=== PATIENT | female | born 1960 | race Caucasian/White ===

== ENCOUNTER 2019-08-09 09:30 | Inpatient (IN) ==
[2019-08-09] MEDS ORDERED: INSULIN REGULAR 100 UNIT/ML IV ONE ×2 (09:53→12:02)
[2019-08-09] MEDS ORDERED: LEVOFLOXACIN INJ 750 MG in PREMIX 1 EACH IV STA (09:53)
[2019-08-09] MEDS ORDERED: SODIUM CHLORIDE 0.9% 2,000 ML IV STA (09:53)
[2019-08-09 10:13] LABS: INR 1.1; PT Patient Result 12.3 SECS (9.6-12.2); Partial Thromboplastin Time 22.9 SECS (20.8-36.0)
[2019-08-09 10:27] LABS: Basophils # 0.1 10*3/uL (0.0-0.2); Basophils % 0.5 % (0.0-0.8); Eosinophils # 0.1 10*3/uL (0.0-0.87); Eosinophils % 0.3 % (0.00-10.9); Hematocrit 46.1 VOL% (35.7-47.0); Hemoglobin 13.1 GM/DL (12.0-16.0); Immature Granulocytes Absolute 0.34 #; Lymphocytes # 1.7 10*3/uL (1.4-4.0); Mean Corpuscular HGB Conc 28.4 GM/DL (32-36); Mean Corpuscular Volume 114.1 FL (87-102); Mean Platelet Volume 12.2 FL (9.6-12.0); Monocytes % 6.7 % (1.7-12.7); Neutrophils % 80.5 % (38.7-73.9); Platelet Count 396 T/CUMM (130-400); Red Blood Count 4.04 MC/CUMM (3.8-5.5); Red Cell Distribution Width 15.4 % (9.3-17.3)
[2019-08-09 10:29] LABS: Alanine Aminotransferase 28 U/L (13-56); Albumin 3.1 G/DL (3.4-5.0); Alkaline Phosphatase 228 U/L (45-117); Aspartate Amino Transferase 21 U/L (0-37); Blood Urea Nitrogen 40 MG/DL (7-18); Calcium 11.3 MG/DL (8.5-10.1); Estimated Glom Filtration Rate 31 ML/MIN; Osmolality,Calculated 331.7 MOS/KG (273-304); Troponin I < 0.015 NG/ML (0.00-0.045)
[2019-08-09 10:34] LABS: Glucose 941 MG/DL (74-106)
[2019-08-09 10:36] LABS: Platelet Estimate Adequate
[2019-08-09 11:06] LABS: Apearance,Urine CLEAR (Clear); Bacteria,Urine Occasional /HPF (Few); Bilirubin,Urine Negative (Negative); Blood, Urine Negative (Negative); Glucose,Urine (UA) >=500 mg/dL (Negative); Hyaline Casts,Urine 7 /LPF (0-3); Ketones,Urine 20 mg/dL (Negative); Mucus,Urine Occasional /LPF (Occasional); Nitrite,Urine Negative (Negative); Protein,Urine Negative; RBC,Urine 6 /HPF (0-4); Squamous Epithelial Cell,Urine Occasional /HPF (0-10); Urine Color Yellow (Yellow); Urine Specific Gravity 1.021 (1.001-1.035); Urine Urobilinogen < 2.0 EU/DL (0.2-1.0); WBC,Urine 3 /HPF (0-6)
[2019-08-09 11:10] LABS: Barbiturates Screen,Urine Negative (Negative); Benzodiazepines Screen,Urine Negative (Negative); Cannabinoid Screen,Urine Negative (Negative); Opiate Screen,Urine Negative (Negative); Phencyclidine Screen,Urine Negative (Negative)
[2019-08-09] MEDS ORDERED: DEXTROSE 10% 250 ML BAG IV PRN (13:16)
[2019-08-09] MEDS ORDERED: INSULIN REGULAR DRIP 100 ML IV SCH (13:16)
[2019-08-09] MEDS ORDERED: ONDANSETRON 4 MG/2 ML VIAL IV PRN (13:16)
[2019-08-09] MEDS ORDERED: SODIUM CHLORIDE 0.9% 1,000 ML IV ONE (13:16)
[2019-08-09] MEDS: PANTOPRAZOLE 40 MG TABLET PO SCH (14:14)
[2019-08-09 15:15] LABS: ABG Base Excess -2.4 MMOL/L (-2.5-2.5); ABG HCO3 22.3 MMOL/L (20-26); ABG Oxygen Saturation 94.7 % (95-100); ABG PCO2 33.6 MM HG (35-48); ABG PH 7.415 (7.35-7.45); ABG PO2 68.3 MM HG (80-95); ABG TCO2 19.6 MMOL/L (23-27); Pt O2 Delivery Device Room Air
[2019-08-09] MEDS: LACTATED RINGERS 1,000 ML IV SCH ×2 (15:27→22:03)
[2019-08-09 15:59] LABS: Calcium 8.9 MG/DL (8.5-10.1)
[2019-08-09 16:59] LABS: Apearance,Urine CLEAR (Clear); Bilirubin,Urine Negative (Negative); Blood, Urine Negative (Negative); Glucose,Urine (UA) >=500 mg/dL (Negative); Ketones,Urine 5 mg/dL (Negative); Nitrite,Urine Negative (Negative); Protein,Urine Negative; RBC,Urine 1 /HPF (0-4); Urine Color Yellow (Yellow); Urine Specific Gravity 1.013 (1.001-1.035); Urine Urobilinogen < 2.0 EU/DL (0.2-1.0); WBC,Urine 1 /HPF (0-6)
[2019-08-09 17:28] LABS: ABG Base Excess -0.1 MMOL/L (-2.5-2.5); ABG HCO3 24.3 MMOL/L (20-26); ABG Oxygen Saturation 96.2 % (95-100); ABG PCO2 34.3 MM HG (35-48); ABG PH 7.445 (7.35-7.45); ABG PO2 74.4 MM HG (80-95); ABG TCO2 21.4 MMOL/L (23-27); Pt O2 Delivery Device Room Air
[2019-08-09 20:22] LABS: Calcium 9.1 MG/DL (8.5-10.1); Osmolality,Calculated 306.4 MOS/KG (273-304)
[2019-08-09] MEDS ORDERED: GLUCAGON 1 MG VIAL IM PRN (20:59)
[2019-08-09] MEDS ORDERED: DEXTROSE 50% 25 GM/50 ML VIAL IV PRN (20:59)
[2019-08-09] MEDS ORDERED: ENOXAPARIN 30 MG/0.3 ML SYRINGE SUBCUT SCH (21:00)
[2019-08-09] MEDS: DEXTROSE 10% 250 ML BAG IV PRN (23:25)
[2019-08-10] MEDS: INSULIN REGULAR 100 UNIT/ML SUBCUT SCH ×4 (00:47→18:01)
[2019-08-10] MEDS: DEXTROSE 10% 250 ML BAG IV PRN (03:50)
[2019-08-10] MEDS: DEXTROSE 5% LACTATED RINGERS 1,000 ML IV SCH ×3 (04:10→23:50)
[2019-08-10 06:07] LABS: Basophils # 0.1 10*3/uL (0.0-0.2); Basophils % 0.6 % (0.0-0.8); Eosinophils # 0.1 10*3/uL (0.0-0.87); Eosinophils % 0.7 % (0.00-10.9); Hematocrit 30.2 VOL% (35.7-47.0); Immature Granulocytes % 0.6 %; Immature Granulocytes Absolute 0.08 #; Mean Corpuscular HGB Conc 31.5 GM/DL (32-36); Mean Corpuscular Volume 103.4 FL (87-102); Mean Platelet Volume 11.2 FL (9.6-12.0); Monocytes % 9.4 % (1.7-12.7); Neutrophils % 72.7 % (38.7-73.9); Red Cell Distribution Width 15.4 % (9.3-17.3); White Blood Count 12.4 T/CUMM (4-12)
[2019-08-10 06:08] LABS: Calcium 8.5 MG/DL (8.5-10.1); Osmolality,Calculated 291.8 MOS/KG (273-304)
[2019-08-10 06:10] LABS: Hemoglobin 9.5 GM/DL (12.0-16.0); Platelet Count 237 T/CUMM (130-400); Red Blood Count 2.92 MC/CUMM (3.8-5.5)
[2019-08-10 07:37] LABS: Apearance,Urine CLEAR (Clear); Bacteria,Urine Occasional /HPF (Few); Bilirubin,Urine Negative (Negative); Blood, Urine Negative (Negative); Glucose,Urine (UA) Negative (Negative); Ketones,Urine Negative (Negative); Mucus,Urine Few /LPF (Occasional); Nitrite,Urine Negative (Negative); Protein,Urine Negative; RBC,Urine 1 /HPF (0-4); Squamous Epithelial Cell,Urine Occasional /HPF (0-10); Urine Color Yellow (Yellow); Urine Urobilinogen < 2.0 EU/DL (0.2-1.0); WBC,Urine 4 /HPF (0-6)
[2019-08-10] MEDS ORDERED: MAGNESIUM SULF RIDER 2 GM in PREMIX 1 EACH IV ONE (07:41)
[2019-08-10] MEDS: POTASSIUM CHLORIDE 20 MEQ/15 ML UDCUP PEG SCH ×4 (08:36→21:32)
[2019-08-10] MEDS: PANTOPRAZOLE 40 MG TABLET PO SCH (08:36)
[2019-08-10] MEDS ORDERED: HYDROCORTISONE 100 MG VIAL IV SCH ×2 (12:00→21:00)
[2019-08-10] MEDS: ENOXAPARIN 40 MG/0.4 ML SYRINGE SUBCUT SCH (21:31)
[2019-08-10] MEDS: AMIODARONE 200 MG TABLET PEG SCH (21:31)
[2019-08-11] MEDS: INSULIN REGULAR 100 UNIT/ML SUBCUT SCH ×5 (00:55→20:34)
[2019-08-11 05:37] LABS: Basophils % 0.5 % (0.0-0.8); Eosinophils % 0.1 % (0.00-10.9); Hematocrit 29.7 VOL% (35.7-47.0); Hemoglobin 9.3 GM/DL (12.0-16.0); Immature Granulocytes % 0.9 %; Immature Granulocytes Absolute 0.07 #; Lymphocytes # 1.6 10*3/uL (1.4-4.0); Lymphocytes % 20.5 % (21.3-54.2); Mean Corpuscular HGB Conc 31.3 GM/DL (32-36); Mean Corpuscular Volume 103.5 FL (87-102); Mean Platelet Volume 11.8 FL (9.6-12.0); Monocytes % 9.9 % (1.7-12.7); Neutrophils % 68.1 % (38.7-73.9); Platelet Count 188 T/CUMM (130-400); Red Blood Count 2.87 MC/CUMM (3.8-5.5); Red Cell Distribution Width 15.2 % (9.3-17.3)
[2019-08-11 06:32] LABS: Calcium 8.3 MG/DL (8.5-10.1); Osmolality,Calculated 296.5 MOS/KG (273-304)
[2019-08-11] MEDS: INSULIN GLARGINE 100 UNIT/ML SUBCUT SCH ×2 (08:15→20:35)
[2019-08-11] MEDS: AMIODARONE 200 MG TABLET PEG SCH ×2 (08:15→20:53)
[2019-08-11] MEDS: PANTOPRAZOLE 40 MG TABLET PO SCH (08:16)
[2019-08-11] MEDS ORDERED: INSULIN REGULAR 100 UNIT/ML SUBCUT SCH (10:00)
[2019-08-11] MEDS: SODIUM CHLORIDE 0.9% 1,000 ML IV SCH ×3 (11:10→20:53)
[2019-08-11] MEDS ORDERED: DEXTROSE 10% 500 ML BAG IV ONE (17:00)
[2019-08-11] MEDS: DEXTROSE 10% 250 ML BAG IV PRN (20:27)
[2019-08-11] MEDS: ENOXAPARIN 40 MG/0.4 ML SYRINGE SUBCUT SCH (20:52)
[2019-08-12] MEDS: INSULIN REGULAR 100 UNIT/ML SUBCUT SCH ×6 (00:01→20:59)
[2019-08-12] MEDS: DEXTROSE 5% NACL 0.9% 1,000 ML IV SCH ×4 (02:42→18:03)
[2019-08-12] MEDS: SODIUM CHLORIDE 0.9% 1,000 ML IV SCH (02:47)
[2019-08-12 06:17] LABS: Osmolality,Calculated 282.3 MOS/KG (273-304)
[2019-08-12] MEDS: POTASSIUM CHLORIDE 20 MEQ/15 ML UDCUP PER TUBE PRN ×4 (08:13→15:34)
[2019-08-12] MEDS: INSULIN GLARGINE 100 UNIT/ML SUBCUT SCH ×2 (08:13→21:30)
[2019-08-12] MEDS: AMIODARONE 200 MG TABLET PEG SCH ×2 (08:14→21:29)
[2019-08-12] MEDS: PANTOPRAZOLE 40 MG TABLET PO SCH (08:21)
[2019-08-12] MEDS: DEXTROSE 10% 250 ML BAG IV PRN ×2 (16:32→21:06)
[2019-08-12] MEDS: ZINC OXIDE PASTE 113 GM TUBE TOP SCH ×2 (16:54→21:29)
[2019-08-12] MEDS: ENOXAPARIN 40 MG/0.4 ML SYRINGE SUBCUT SCH (21:30)
[2019-08-13] MEDS: INSULIN REGULAR 100 UNIT/ML SUBCUT SCH ×6 (01:04→20:42)
[2019-08-13 05:08] LABS: Basophils % 0.9 % (0.0-0.8); Eosinophils # 0.4 10*3/uL (0.0-0.87); Eosinophils % 7.7 % (0.00-10.9); Hematocrit 31.5 VOL% (35.7-47.0); Hemoglobin 10.1 GM/DL (12.0-16.0); Immature Granulocytes % 0.4 %; Immature Granulocytes Absolute 0.02 #; Lymphocytes # 1.3 10*3/uL (1.4-4.0); Lymphocytes % 27.9 % (21.3-54.2); Mean Corpuscular HGB Conc 32.1 GM/DL (32-36); Mean Corpuscular Volume 101.9 FL (87-102); Mean Platelet Volume 11.7 FL (9.6-12.0); Monocytes % 13.4 % (1.7-12.7); Neutrophils % 49.7 % (38.7-73.9); Platelet Count 209 T/CUMM (130-400); Red Blood Count 3.09 MC/CUMM (3.8-5.5); Red Cell Distribution Width 14.9 % (9.3-17.3); White Blood Count 4.6 T/CUMM (4-12)
[2019-08-13 05:35] LABS: Calcium 8.3 MG/DL (8.5-10.1); Osmolality,Calculated 280.1 MOS/KG (273-304)
[2019-08-13] MEDS: DEXTROSE 5% NACL 0.9% 1,000 ML IV SCH ×3 (06:30→21:03)
[2019-08-13] MEDS: PANTOPRAZOLE 40 MG TABLET PO SCH (08:32)
[2019-08-13] MEDS: ZINC OXIDE PASTE 113 GM TUBE TOP SCH ×2 (08:32→20:42)
[2019-08-13] MEDS: AMIODARONE 200 MG TABLET PEG SCH ×2 (08:32→20:42)
[2019-08-13] MEDS: INSULIN GLARGINE 100 UNIT/ML SUBCUT SCH ×2 (08:33→20:43)
[2019-08-13] MEDS: POTASSIUM CHLORIDE 20 MEQ/15 ML UDCUP PER TUBE PRN ×2 (10:23→11:57)
[2019-08-13] MEDS: ENOXAPARIN 40 MG/0.4 ML SYRINGE SUBCUT SCH (20:42)
[2019-08-14] MEDS: INSULIN REGULAR 100 UNIT/ML SUBCUT SCH ×6 (00:06→19:42)
[2019-08-14] MEDS: DEXTROSE 5% NACL 0.9% 1,000 ML IV SCH ×2 (04:12→16:13)
[2019-08-14 06:35] LABS: Basophils # 0.1 10*3/uL (0.0-0.2); Basophils % 1.1 % (0.0-0.8); Eosinophils # 0.3 10*3/uL (0.0-0.87); Eosinophils % 6.2 % (0.00-10.9); Hematocrit 32.8 VOL% (35.7-47.0); Hemoglobin 10.2 GM/DL (12.0-16.0); Immature Granulocytes % 0.6 %; Immature Granulocytes Absolute 0.03 #; Lymphocytes # 1.1 10*3/uL (1.4-4.0); Mean Corpuscular HGB Conc 31.1 GM/DL (32-36); Mean Corpuscular Volume 101.9 FL (87-102); Mean Platelet Volume 11.6 FL (9.6-12.0); Monocytes % 14.7 % (1.7-12.7); Neutrophils % 53.4 % (38.7-73.9); Platelet Count 219 T/CUMM (130-400); Red Blood Count 3.22 MC/CUMM (3.8-5.5); White Blood Count 4.7 T/CUMM (4-12)
[2019-08-14 06:56] LABS: Calcium 8.1 MG/DL (8.5-10.1); Osmolality,Calculated 281.4 MOS/KG (273-304)
[2019-08-14] MEDS: INSULIN GLARGINE 100 UNIT/ML SUBCUT SCH ×2 (08:34→22:08)
[2019-08-14] MEDS: AMIODARONE 200 MG TABLET PEG SCH ×2 (08:34→22:07)
[2019-08-14] MEDS: PANTOPRAZOLE 40 MG TABLET PO SCH (08:34)
[2019-08-14] MEDS: ZINC OXIDE PASTE 113 GM TUBE TOP SCH ×2 (08:35→22:09)
[2019-08-14] MEDS: ENOXAPARIN 40 MG/0.4 ML SYRINGE SUBCUT SCH (22:08)
[2019-08-15] MEDS: INSULIN REGULAR 100 UNIT/ML SUBCUT SCH ×7 (00:55→23:04)
[2019-08-15] MEDS: DEXTROSE 5% NACL 0.9% 1,000 ML IV SCH ×3 (00:56→16:46)
[2019-08-15 06:12] LABS: Prealbumin 13.2 MG/DL (20-40)
[2019-08-15] MEDS: AMIODARONE 200 MG TABLET PEG SCH ×2 (09:20→23:01)
[2019-08-15] MEDS: INSULIN GLARGINE 100 UNIT/ML SUBCUT SCH ×2 (09:20→23:00)
[2019-08-15] MEDS: PANTOPRAZOLE 40 MG TABLET PO SCH (09:20)
[2019-08-15] MEDS: ZINC OXIDE PASTE 113 GM TUBE TOP SCH ×2 (09:21→23:01)
[2019-08-15] MEDS: ENOXAPARIN 40 MG/0.4 ML SYRINGE SUBCUT SCH (23:00)
[2019-08-16] MEDS: DEXTROSE 5% NACL 0.9% 1,000 ML IV SCH ×4 (01:05→21:42)
[2019-08-16] MEDS: INSULIN REGULAR 100 UNIT/ML SUBCUT SCH ×3 (05:35→13:12)
[2019-08-16] MEDS: INSULIN GLARGINE 100 UNIT/ML SUBCUT SCH (09:08)
[2019-08-16] MEDS: AMIODARONE 200 MG TABLET PEG SCH ×2 (09:09→21:39)
[2019-08-16] MEDS: PANTOPRAZOLE 40 MG TABLET PO SCH (09:09)
[2019-08-16] MEDS: ZINC OXIDE PASTE 113 GM TUBE TOP SCH ×2 (09:09→21:41)
[2019-08-16] MEDS: INSULIN LISPRO 100 UNIT/ML SUBCUT SCH (20:20)
[2019-08-16] MEDS: ENOXAPARIN 40 MG/0.4 ML SYRINGE SUBCUT SCH (21:39)
[2019-08-17] MEDS: DEXTROSE 5% NACL 0.9% 1,000 ML IV SCH ×3 (04:16→19:38)
[2019-08-17] MEDS: INSULIN REGULAR 100 UNIT/ML SUBCUT SCH (07:36)
[2019-08-17] MEDS: INSULIN LISPRO 100 UNIT/ML SUBCUT SCH ×3 (08:53→17:15)
[2019-08-17] MEDS: AMIODARONE 200 MG TABLET PEG SCH ×2 (08:54→20:45)
[2019-08-17] MEDS: PANTOPRAZOLE 40 MG TABLET PO SCH (08:54)
[2019-08-17] MEDS: ZINC OXIDE PASTE 113 GM TUBE TOP SCH ×2 (15:32→20:45)
[2019-08-17] MEDS: ENOXAPARIN 40 MG/0.4 ML SYRINGE SUBCUT SCH (20:44)
[2019-08-17] MEDS: INSULIN GLARGINE 100 UNIT/ML SUBCUT SCH (20:45)
[2019-08-18] MEDS: DEXTROSE 5% NACL 0.9% 1,000 ML IV SCH ×2 (03:55→12:13)
[2019-08-18] MEDS: AMIODARONE 200 MG TABLET PEG SCH ×2 (08:15→20:55)
[2019-08-18] MEDS: INSULIN LISPRO 100 UNIT/ML SUBCUT SCH ×3 (08:15→16:55)
[2019-08-18] MEDS: PANTOPRAZOLE 40 MG TABLET PO SCH (08:15)
[2019-08-18] MEDS: ZINC OXIDE PASTE 113 GM TUBE TOP SCH ×2 (08:17→20:56)
[2019-08-18] MEDS: INSULIN GLARGINE 100 UNIT/ML SUBCUT SCH (20:55)
[2019-08-18] MEDS: ENOXAPARIN 40 MG/0.4 ML SYRINGE SUBCUT SCH (20:55)
[2019-08-19] MEDS: ACETAMINOPHEN 325 MG TABLET PO PRN ×2 (03:36→21:22)
[2019-08-19] MEDS: INSULIN LISPRO 100 UNIT/ML SUBCUT SCH ×3 (09:05→17:14)
[2019-08-19] MEDS: AMIODARONE 200 MG TABLET PEG SCH ×2 (09:06→21:22)
[2019-08-19] MEDS: PANTOPRAZOLE 40 MG TABLET PO SCH (09:06)
[2019-08-19] MEDS: ZINC OXIDE PASTE 113 GM TUBE TOP SCH ×2 (09:07→21:23)
[2019-08-19] MEDS: INSULIN GLARGINE 100 UNIT/ML SUBCUT SCH (21:22)
[2019-08-19] MEDS: ENOXAPARIN 40 MG/0.4 ML SYRINGE SUBCUT SCH (21:23)
[2019-08-20 07:29] VITALS: BP 122/73
[2019-08-20] MEDS: PANTOPRAZOLE 40 MG TABLET PO SCH (09:00)
[2019-08-20] MEDS: ZINC OXIDE PASTE 113 GM TUBE TOP SCH (09:00)
[2019-08-20] MEDS: INSULIN LISPRO 100 UNIT/ML SUBCUT SCH (09:00)
[2019-08-20] MEDS: AMIODARONE 200 MG TABLET PEG SCH (09:00)
== END 2019-08-20 11:43 | disposition home or self-care (01) | DRG 638 ==
LOC: N.ED 09:30 → N.EDINP 12:07 → SUATTDRO 12:07 → N.ICU 12:50 → N.5E 08-10 17:14
PROVIDERS: ADMIT Internal Medicine; ATTEND Internal Medicine Geriatric Medicine